=== PATIENT | male | born 1970 | race Caucasian/White ===

== ENCOUNTER 2024-04-07 13:21 | Emergency (ER) | payer MEDICAID, SELFPAY ==
--- NOTE | ~2024-04-07 | CT_ITS ---
EXAMINATION: CT HEAD WITHOUT CONTRAST CT CERVICAL SPINE WITHOUT CONTRAST CLINICAL INFORMATION: Trauma. COMPARISON: None available. TECHNIQUE: Contiguous axial imaging was performed from the skull base to vertex without intravenous administration of contrast. Contiguous axial imaging was performed from the upper chest through the skull base without intravenous administration of contrast. Coronal and sagittal reformats were obtained at the acquisition workstation. This CT examination was performed using dose optimization techniques as appropriate, variously including the following: *Automated exposure control. *Adjustment of mA and/or kV according to patient size (this includes techniques or standardized protocols for targeted exams where dose is matched to indication/reason for exam; i.e. extremities or head). *Use of iterative reconstruction technique. DLP: 778 mGy-cm FINDINGS: Head: There is no evidence of acute intracranial hemorrhage or edematous territorial infarction. Arellano-white matter differentiation is preserved. A few foci of hypoattenuation in the periventricular and deep white matter are consistent with mild microangiopathy. The ventricles are normal in morphology and size. No evidence for obstructive hydrocephalus. No abnormal mass effect or midline shift. No extra-axial fluid collections. Tissue laceration and moderate subgaleal hematoma along the right aspect of the frontal bone extending along the right periorbital, preseptal soft tissues, measuring up to 0.8 cm in depth. No associated acute osseous abnormalities. Mild mucosal thickening of the paranasal sinuses. The mastoid air cells and middle ear cavities are clear. Cervical Spine: The atlantooccipital and atlantoaxial articulations remain well aligned. Mild reversal the normal cervical lordosis centered on C4. Otherwise, there is anatomic alignment of the vertebral bodies and posterior elements. No evidence of acute fracture or subluxation. The vertebral body heights are maintained. Advanced degenerative disc disease at C6-C7. Moderate degenerative disc disease from C2-C6. Facet and uncovertebral joint arthropathy leads to osseous encroachment on the neural foramina from C3-T1. There is no prevertebral soft tissue swelling. The thyroid gland and remaining cervical soft tissues are within normal limits. The lung apices demonstrate no abnormalities. CT/CT cervical spine wo IV con IMPRESSION: 1. No evidence of acute intracranial hemorrhage or edematous territorial infarction. Mild underlying microangiopathy. 2. No evidence of acute fracture or traumatic subluxation of the cervical spine. Moderate multilevel degenerative spondyloarthropathy of the cervical spine. 3. Right frontal scalp laceration and hematoma. No associated osseous abnormalities. Electronically signed by: Joshua Bolanos DO 04/07/2024 05:16 PM [facility]ATER[facility] EUGENE
[2024-04-07 13:27] VITALS: BP 137/67; BP 160/90; PULSE 52; PULSE 55; RESP 18; TEMP 36.7; O2SAT 100; O2SAT 99; BMI 24.0
--- NOTE | 2024-04-07 13:30 | ED_ITS ---
HPI - Head Injury General Chief complaint: Wound/Laceration Stated complaint: FALL, HEAD INJURY Time Seen by Provider: 04/07/24 13:27 Source: EMS Mode of arrival: EMS Limitations: no limitations History of Present Illness HPI Narrative: This is 53 years old male presented to the emergency department after a fall. He states that he was running and tripped and fell he has abrasion and laceration in the right face and forehead no LOC no neck pain. No syncope MD Complaint: head injury Onset (ago): hour(s) (1) Arrival Conditions: C-spine immobilization present Mechanism of Injury: fall Place: outdoors Loss of Consciousness: no Location of injury: frontal and parietal Severity: moderate Radiation: none Related Data Allergies Allergy/AdvReac Type Severity Reaction Status Date / Time No Known Allergies Allergy Verified 04/07/24 13:32 [No Known Allergies*] Review of Systems 2 ENT: Reports system reviewed and no additional complaints, except as documented Cardiovascular: Cardiovascular: Reports as per HPI [facility] Past Medical History [facility] Narrative: opioid abuse disorder Social History Social History Smoked in Last 30 Days: No Advance Directives: No Advance Directives Information Provided: No Do you have a plan to hurt others: No Plan Physical Exam 2 Vital Signs: Vital Signs: Last Vital Signs Temp 98.0 F 04/07/24 15:12 Pulse 52 04/07/24 15:12 Resp 18 04/07/24 15:12 BP 137/67 04/07/24 15:12 Pulse Ox 99 04/07/24 15:12 O2 Del Method Room Air 04/07/24 15:12 BMI result Body Mass Index 24.0 No acute distress Const: General: cooperative Nutritional Appearance: well nourished O rientation/consciousness: patient oriented x3 HEENT: Other: Patient had a large abrasion in the right side of the face see pictures also there is about 2 cm laceration forehead Ears: hearing grossly normal bilaterally Mouth: Normal oral and palatal mucosa present Throat: Yes posterior oropharynx normal Neck: Neck: Yes normal visual inspection and Yes full ROM Chest: Chest palpation & inspection: normal inspection of the chest Resp: Effort & Inspection: normal respiratory effort Auscultation: clear to auscultation bilaterally Cardio: Jugular venous distension: no JVD Rate: regular rate Rhythm: r egular rhythm GI: Inspection: Yes normal to inspection Palpation (GI): Soft to palpation, not firm and nontender Skin: General skin exam: no rashes or lesions noted and elasticity normal L esions: no lesions Rashes: no rashes Neuro: General: patient oriented x3 Course Reevaluation(s) Reevaluation #1: Patient signed against medical advice he understands risk including .he signed before we finished our evaluation,ct scan still pending result Time: 15:22 Medications Administered Discontinued Medications Generic Name Dose Route Start Last Admin Trade Name Velasquez PRN Reason Stop Dose Admin Lidocaine HCl 5 ml 04/07/24 13:36 04/07/24 15:11 Lidocaine Hcl 1 % Mpf 5 Ml Vial INFILTRATI 04/07/24 13:37 5 ml ONCE ONE Administration Medical Decision Making Medical Decision Making [facility] Narrative: Patient presented to the emergency room after a fall with a head Differential Diagnosis Differential Diagnoses: The differential diagnosis associated with the presentation includes Subdural hematoma /epidural hematoma /concussion Admission/Observation Consideration of admission/observation: Escalation of care including admission/observation considered Procedures Laceration forehead: Site: face Side (If applicable): right Size (cm): 2 Description: flap and irregular Local Anesthetic: lidocaine 1% Amount of anesthesia used (mL): 2 Pre-repair: irrigated extensively Skin layer closed with: nylon Size (cm): 5-0 Number of sutures: 2 Technique: simple, interrupted Discharge Plan Discharge Clinical Impression: Face lacerations, Abrasion of face, Head injury Patient Disposition: Left Against Medical Advice Stand Alone Forms: Against Medical Advice Interventions: ED Discharge Assessment Last Done: 04/07/24 15:12 Discharge Date/Time: 04/07/24 15:13 Print Language: Irish
[2024-04-07] MEDS: Lidocaine HCl 1 % MPF 5 ML VIAL INFILTRATI (15:11)
[2024-04-07 15:12] VITALS: BP 137/67; PULSE 52; RESP 18; TEMP 36.7; O2SAT 99
--- NOTE | 2024-04-07 15:12 | PC.NURSE ---
Pt leaving AMA, MD Roger aware. When asked to sign AMA papers, pt said i'm not signing shit! MD Roger aware pt left without signing papers.
== END 2024-04-07 15:13 | disposition left against medical advice (07) ==
PROVIDERS: Emergency Provider Emergency Medicine; PCP Family Medicine
DX: S01.81XA Laceration without foreign body of other part of head, initial encounter (principal); R51.9 Headache, unspecified; M54.2 Cervicalgia; W01.0XXA Fall on same level from slipping, tripping and stumbling without subsequent striking against object, initial encounter; Y93.89 Activity, other specified; Y92.89 Other specified places as the place of occurrence of the external cause; Y99.8 Other external cause status
CPT/HCPCS: 12051; 70450; 72125; 99283; 99284; J2003

== ENCOUNTER 2024-11-09 16:31 | Emergency (ER) | payer SELFPAY ==
[2024-11-09 16:52] VITALS: BP 140/82; PULSE 79; O2SAT 98; BMI 24.4
[2024-11-09 16:59] VITALS: BP 137/62; PULSE 56; RESP 16; TEMP 36.3; O2SAT 96
--- NOTE | 2024-11-09 17:04 | PC.NURSE ---
Patient a 53 yo male who presents s/p accidental overdose on heroin. PMH opiate use disorder. Patient found on the ground by bystanders and narcan given with good effect. c/o n/v/d at this time. Patient alert, restless and compulsive. Respirations even and non-labored. Abdomen soft, non-tender with positive bowel sounds. Large amount of diarrhea noted. Positive pedal pulses with no edema.
--- NOTE | 2024-11-09 17:25 | ED_ITS ---
HPI - Overdose General Chief Complaint: Overdose Stated Complaint: OD heroin , 4mg narcan , nausea Time Seen by Provider: 11/09/24 16:45 Source: patient and EMS Mode of arrival: EMS Limitations: no limitations History of Present Illness ED Provider: Dr. Wilma Jones HPI Narrative: patient comes to the emergency room via ambulance. Earlier today, patient was found on the ground by bystanders, patient was given Narcan with good affect. Patient admits he has been snorting heroin. Patient here in the emergency room complaining of diarrhea, nausea. Patient denies any trauma to his knowledge. Patient denies SI or HI. Patient states this overdose was an accident. Related Data Allergies Allergy/AdvReac Type Severity Reaction Status Date / Time No Known Allergies (No Known Allergy Verified 11/09/24 16:55 Allergies*) Review of Systems Review of Systems: Constitutional : No Weight loss, No Fever, No Chills, No Night Sweats, No Fatigue, No Malaise ENT/Mouth : No Hearing loss, No Ear Pain, No Nasal Congestion, No Sinus Pain, No Hoarseness, No sore throat, No Rhinorrhea, No Swallowing Difficulty Eyes: No Eye Pain, No Swelling, No Redness, No Foreign Body, No Discharge, No Vision Changes Cardiovascular : No Chest Pain, No SOB, No Dyspnea on Exertion, No Orthopnea, No Edema, No Palpitations Respiratory : No Cough, No Sputum, No Wheezing, No Smoke Exposure, No Dyspnea Gastrointestinal : No Nausea, No Vomiting, No Diarrhea, No Constipation, No abdominal Pain, No Hematochezia, No Melena Genitourinary : no irregular bleeding, No Dysuria, No Urinary Frequency, No Hematuria, No Urinary Incontinence, No Urgency, No Flank Pain, No Urinary Flow Changes, No Hesitancy Musculoskeletal : No joint pain, No Myalgias, No Joint Swelling Skin : No Skin Lesions, No rash Neuro : No Weakness, No Numbness, No Paresthesias, No Loss of Consciousness, No Dizziness, No Headache Psych : Patient denies SI or HI. Patient admits to using heroin. Heme/Lymph: No Bruising, No Bleeding,No Lymphadenopathy Endocrine : No Polyuria, No Polydipsia, No Temperature Intolerance PMFSH Past Medical History Medical History (Updated 11/09/24 @ 17:36 by Wilma Jones MD) Overdose Polysubstance abuse Social History Social History Unable to assess alcohol history related to: Unknown Use of substances other than those prescribed or required for medical reasons: Yes Substance Use Type: Heroin Advance Directives: No Advance Directives Information Provided: No Physical Exam Vital Signs: Vital Signs: Last Vital Signs Temp 98.4 F 11/09/24 21:12 Pulse 45 L 11/09/24 21:12 Resp 8 L 11/09/24 21:12 BP 151/80 H 11/09/24 21:12 Pulse Ox 100 11/09/24 21:12 O2 Del Method Room Air 11/09/24 21:12 BMI result Body Mass Index 24.4 Const: Other: Appearance: Alert. Oriented X3. seems uncomfortable, somnolent but easily arousable Eyes: Pupils equal, round and reactive to light. ENT: Pharynx normal. Neck: Normal inspection. Neck supple. No lymph nodes noted. No crepitus CVS: Normal heart rate and rhythm. Pulses normal. Normal S1 and S2 Respiratory: No respiratory distress. Breath sounds normal. No Wheezing. No rales Abdomen: Soft and nontender. No rigidity. No distention. Skin: Skin warm and dry. Normal skin color. Normal skin turgor. Extremities: No lower extremity edema. No Lacerations. No Rash Neuro: Oriented X 3. No motor deficit. No sensory deficit. Moving all extremities. No slurred speech. CN 2 through 12 grossly intact Psych: cooperative Course Course Course Narrative: patient was brought into the emergency room after realizing heroin and receiving Narcan. Patient complaining of feeling uncomfortable, including nausea and diarrhea. On arrival, patient's vitals stable, oxygen saturation 96% on room air. Patient is under physician observation, on continuous oxygen monitor, received p.o. Zofran and loperamide patient declining care team consult/addiction medicine physician observation started at 17:33 Medications Administered Discontinued Medications Generic Name Dose Route Start Last Admin Trade Name Freq PRN Reason Stop Dose Admin Loperamide HCl 4 mg 11/09/24 17:25 11/09/24 17:37 Loperamide Hcl 2 Mg Capsule PO 11/09/24 17:26 4 mg ONCE ONE Administration Ondansetron HCl 4 mg 11/09/24 17:25 11/09/24 17:37 Ondansetron Odt 4 Mg Tab.Rapdis TRANSLINGU 11/09/24 17:26 4 mg ONCE ONE Administration Medical Decision Making Medical Decision Making MDM Narrative: all of patient's labs pending Physician observation started at 17:45 23:00, patient is awake, alert and oriented x3, ambulatory with normal steady gait, patient coherent. At this time, discontinuing physician observation time patient refused all labs patient is feeling much better, ready for discharge. Differential Diagnosis Differential Diagnoses: The differential diagnosis associated with the presentation includes ( polysubstance abuse, overdose) Admission/Observation Consideration of admission/observation: Escalation of care including admission/observation considered Critical Care Time Critical Care Time Critical Care Time: Yes Total Critical Care Time: 35 Attestation: I have personally provided critical care time. Time includes review of lab data, radiology results, discussion with consultants, and monitoring for potential decompensation. Intervention performed as documented. Discharge Plan Discharge Clinical Impression: Drug overdose Patient Disposition: Home, Self-Care Instructions: Adult Overdose (ED) Additional Instructions: Overdose You were seen in our Emergency Department for an overdose today. You received narcan in order to reverse the effects of overdose. Narcan only lasts about 45 min to 1 hour in the system. You may have been given narcan to take home with you today, please keep it near you if you are going to use again, so others can use it if needed.? The number one risk for fatal overdose is using alone? [facility] is a 26/11 hotline where you can be on the phone with someone while you use, and they can call for help if they suspect an overdose: [phone] Things to look out for when you leave include severe vomiting or diarrhea, headaches, muscle cramps, fever, coughing, chest pain, or if you feel so short of breath you cannot walk to the bathroom. Please seek care and return any time for worsening symptoms.? You may have been provided with safer injection?items, please take time to take care of YOU and your health. Use new supplies whenever possible to lessen the chances of infections and other illnesses.? If you need more supplies, please go [facility],? [address], [place] you can call or text to coordinate delivery of safer supplies. If you decide you want to stop or cut down on how much you?re using, please call the numbers on the list provided to you or you can come to our outpatient Addiction Treatment office [facility] (M-F 9am-5p) [address], [address] [place], [place]. [phone] Print Language: Barbadian
[2024-11-09 18:00] VITALS: BP 138/75; PULSE 63; RESP 20; O2SAT 96
--- OUTSIDE RECORDS SUMMARY | 2024-11-09 18:15 | XMS_ITS | Clinical Summary ---
Author Organization [employer] Address [address] [place] [address] Care Team Providers Care Sign Hanger Name Role Phone Unavailable Primary Care Provider Unavailabl e Social History Tobacco Use Types Packs/Day Years Used Date Smoking Tobacco: Never Assessed Sex and Gender Information Value Date Recorded Sex Assigned at Male 04/15/2023 2:55 PM EST Legal Sex Male 8:40 PM EDT Gender Identity Male 04/15/2023 2:55 PM EST Sexual Orientation Straight 04/15/2023 2: 55 PM EST Last Filed Vital Signs Vital Sign Reading Time Taken Comments Blood Pressure 112/62 09/20/2021 9:00 AM EDT Pulse 104 09/20/2021 9:00 AM EDT Temperature - - Respiratory Rate - - Oxygen Saturation 97% 09/20/2021 9:00 AM EDT Inhaled Oxygen Concentration - - Weight 90.7 kg (200 lb) 09/20/2021 9:00 AM EDT Height 162.6 cm (5' 4 ) 09/20/2021 9:00 AM EDT Body Mass Index 34.33 09/20/2021 9:00 AM EDT Plan of Treatment Health Maintenance Due Date Last Done Comments CT Colonography 1971 Colonoscopy 1971 Colorectal Cancer Screening 1971 Dental Oral Exam 1971 Dental Prophylaxis 1971 Dental X-Ray: Bitewings 1971 Dental X-Ray: Full Mouth 1971 Depression Screening 1971 FIT DNA/Cologuard 1971 FIT 1971 FOBT 1971 HIV Screening 1971 Lipid Panel 1971 SDOH Screening 1971 Sigmoidoscopy 1971 Disability Screening 1971 Alcohol/Substance Use Screening 1983 Tobacco Screening 1983 Family Planning (PISQ) 12/23/1986 Hepatitis C Screening 12/23/1989 Zoster Vaccines (1 of 2) 12/23/2021 COVID-19 Vaccine ( season) 2024 05/16/2021, 02/10/2021, 06/17/2020, Additional history exists Influenza Vaccine (#1) 2025 , 01/06/2020, 02/27/2018, Additional history exists Pneumococcal Vaccine: 50+ Years (3 of 3 - PCV20 or PCV21) 10/08/2025 10/08/2020, 01/10/2018, 02/14/2012, Additional history exists DTaP/Tdap/Td Vaccines (3 - Td or Tdap) 11/22/2027 11/21/2017, 02/14/2012 RSV Patients and Patients Aged 60 years or older (1 - 1-dose 75+ series) 12/23/2046 Hepatitis B Vaccines Completed 05/27/2024, 06/08/2014, 02/09/2014, Additional history exists HIB Vaccines Aged Out No longer eligi ble based on patient's age to complete this topic HPV Vaccines Aged Out No longer eligi ble based on patient's age to complete this topic Hepatitis A Vaccines Aged Out No long er eligible based on patient's age to complete this topic IPV Vaccines Aged Out No longer eligi ble based on patient's age to complete this topic Meningococcal B Vaccine Aged Out No l onger eligible based on patient's age to complete this topic Meningococcal Vaccine Aged Out No monique jesika eligible based on patient's age to complete this topic RSV under 20 months Aged Out No longe r eligible based on patient's age to complete this topic Rotavirus Vaccines Aged Out No longer eligible based on patient's age to complete this topic [facility] STAND ADULT
--- OUTSIDE RECORDS SUMMARY | 2024-11-09 18:15 | XMS_ITS | Patient Health Record ---
Author Organization [facility] Address [address], [place] [id number] Care Team Providers Care Furniture Detailer Name Role Phone dEitaCindy - DO NOT USE, Lupe Abrams Primary C are Provider Unavailable Sherrie De La Cruz Unavailable [phone] Sam Wright Unavailable [phone] [facility] Unavailable [phone] Allergies Allergen (clinical drug ingredient) Drug/Non Drug Allergy documented on EMR Reaction Allergy Type Onset Date Status nicotin replacement products (uncoded) swelling Allergy Active Bee stings (uncoded) Unknown Allergy Active Reason For Referral No Information Medications Medication SIG (Take, Route, Fr equency, Duration) Notes Start Date End Date Status albuterol 90 mcg/inh 2 puff(s) inhaled Q ID for 30 days Active methadone 10 mg/mL 85 mg orally once a day [facility] Active Immunizations Vaccine Route Administration Date Status Comme nts Td (adult) Unknown 09/06/2007 Administered PPD negative Unknown 09/08/2008 Administered Influenza IM Intramuscular 02/07/2009 Administered PPD positive ID Intradermal 09/15/2009 Administered Rizwana d in [facility]. Detox on 09/12/09. Read at [facility] 72 hours later. 35mm induration 40mm erythema. PPD planted ID Intradermal 12/02/2010 Administered PPD planted Unknown 11/28/2011 Administered PPD planted Unknown 12/19/2011 Administered PPD negative Unknown 12/21/2011 Administered 0 mm. Tdap IM Intramuscular 11/17/2012 Administered Hepatitis A Unknown 06/24/2015 Administered Social History Tobacco Use: Social History Observation Description Date Details (start date - stop date) Current Smoker NA - NA Tobacco Use Assessment MU Question Answer Notes What is your current smoking status? current smoker How often do you smoke? every day How many cigarettes a day do you smoke? 11-20 How soon after you wake up d o you smoke your first cigarette? Within 5 minutes Are you interested in quitting? not ready to sirisha t not ready to quit, is allergic to patches and gum Patient counseled on the buck gers of tobacco use and advised to quit: 01/27/2015 Problems Problem Type SNOMED Code ICD Code Onset Dates Problem Status W/U Status Risk Notes Problem Chronic hepatitis C (727647761) Chronic viral hepatitis C (B18.2) Active confirmed Problem Opioid abuse (5512143) Opioid abuse, uncomplicated (F11.10) Active confirmed Problem Mild intermittent asthma (810434148) Mild intermittent asthma, uncomplicated (J45.20) Active confirmed Problem Plantar fascial fibromatosis (58460627) Plantar fascial fibromatosis (M72.2) Active confirmed Problem Blindness left eye category 4, 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) Active confirmed Problem Sheltered homelessness (340921035639309 ) Sheltered homelessness (Z59.01) Active confirmed Encounters Encounter Location Date Provider Diagnosis [facility] [address] [place] [address] [id number] 02/18/2024 [facility] [address], [place] [phone] 04/08/2024 [facility] [address], [place] [phone] 04/15/2024 Sam Wright Plan Of Treatment Pending Test Test Name Order Date CBC - [facility] 04/10/2013 CBC - [facility] 10/21/2015 Rapid Strep OSOM A 10/04/2007 HIV 04/10/2013 HIV 10/21/2015 A1c - [facility] 04/10/2013 Comprehensive Metabolic Panel - [facility] 10/21/2015 Comprehensive Metabolic Panel - [facility] 04/10/2013 Thyroid Panel-cascade 04/10/2013 Chlamydia, DNA Urine - [facility] 04/10/20 13 Hep A Ab (IgG) - [facility] 04/10/2013 Hep B Surface Antibody (anti-HBs IgG) Hep B Surface Antigen (HBsAg) 04/10/2013 Hep B Core Antibody (anti-HBc IgG) 04/10 Treponemal AB with reflex to RPR 013 Treponemal AB with reflex to RPR 016 Hep C Genotype - [facility] 10/21/2015 Hep C Genotype - [facility] 04/10/2013 Hep C viral load - [facility] 04/10/2013 Lipid Profile (fasting or non) - [facility] 04/10/2013 FibroSURE -HepC - [facility] 10/21/2015 Hep C viral load TMA (ultra sensitive) - [facility] 10/21/2015 HEPATITIS C VIRAL RNA, QN REAL TIME PCR W/REFLS 05/09/2021 Insurance Providers Payer Name Payer Address Payer Phone Subscriber Number Group Number Insured Name Patient Relationship to Insured Coverage Start Date Coverage End Date [place] Medicaid C3 [address] [place], [place] [id number] Khurram Ga Self - patient is the insured 1 Medical (General) History Medical History History ICD Code heart murmur hx migraines Active heroin dependence Hepatitis C diagnosed 2003, got sick wit h interferon in the past asthma 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
--- NOTE | 2024-11-09 19:18 | MHC.EDTECH ---
patient refused labs
--- NOTE | 2024-11-09 20:00 | PC.NURSE ---
assumed care for pt at this time. pt noited to be resting quietly in strecther changed over. attempted labs on t, pt refused, pt educate don importance of lab work pt continuing to refuse. pt resting at this time in no notable distress.
[2024-11-09 21:12] VITALS: BP 151/80; PULSE 45; RESP 8; TEMP 36.9; O2SAT 100
[2024-11-09 23:15] VITALS: BP 125/66; PULSE 47; RESP 10; TEMP 36.7; O2SAT 97
[2024-11-09 23:41] VITALS: BP 125/66; PULSE 47; RESP 10; TEMP 36.7; O2SAT 97
== END 2024-11-09 23:42 | disposition home or self-care (01) ==
PROVIDERS: Emergency Provider Emergency Medicine
DX: T40.1X1A Poisoning by heroin, accidental (unintentional), initial encounter (principal); R11.0 Nausea; Y92.9 Unspecified place or not applicable; Z71.51 Drug abuse counseling and surveillance of drug abuser
CPT/HCPCS: 99283; 99285